=== PATIENT | female | born 1990 | race Two or more races ===

== ENCOUNTER 2020-08-27 09:55 | Emergency (ER) | payer OTHER ==
[~2020-08-27] VITALS: Ht 172.7 cm; Wt 65.8 kg
[2020-08-27] MEDS ORDERED: KETO10TA2 PO (15:56)
[2020-08-27] MEDS ORDERED: PEPCID AC20 MG PO (15:56)
== END 2020-08-27 16:33 | disposition home or self-care (01) ==
LOC: ER 09:55
DX: N93.8 Other specified abnormal uterine and vaginal bleeding (principal); D25.9 Leiomyoma of uterus, unspecified

== ENCOUNTER 2020-08-29 16:00 | Emergency (ER) | payer OTHER ==
[~2020-08-29] VITALS: Ht 172.7 cm; Wt 65.8 kg
[~2020-08-29 16:00] MED LIST: KETO10TA2 PO; PEPCID AC20 MG PO
== END 2020-08-29 20:15 | disposition home or self-care (01) ==
LOC: ER 16:00
DX: R10.31 Right lower quadrant pain (principal); M79.18 Myalgia, other site

== ENCOUNTER 2021-05-17 11:01 | Emergency (ER) | payer OTHER ==
[~2021-05-17] VITALS: Ht 172.7 cm; Wt 72.6 kg
[2021-05-17] MEDS ORDERED: ADULT LOW DOSE81 M1 (11:13)
== END 2021-05-17 15:14 | disposition left against medical advice (07) ==
LOC: ER 11:01
DX: O26.892 Other specified pregnancy related conditions, second trimester (principal)

== ENCOUNTER 2021-06-11 11:31 | Inpatient (IN) | payer OTHER ==
[~2021-06-11] VITALS: Ht 172.7 cm; Wt 83.0 kg
[~2021-06-11 11:31] MED LIST changes: +ADULT LOW DOSE81 M1
== END 2021-06-13 10:11 | disposition home or self-care (01) | DRG 833 ==
LOC: NST 11:31 → LDR 12:59 → OB/GYN 06-12 18:29
PROVIDERS: ADMIT Obstetrics & Gynecology; ATTEND Obstetrics & Gynecology
PROC: 4A1HXFZ Monitoring of Products of Conception, Cardiac Rhythm, External Approach (ICD-10-PCS; principal; 2021-06-11)
DX: O13.2 Gestational [pregnancy-induced] hypertension without significant proteinuria, second trimester (principal); Z3A.23 23 weeks gestation of pregnancy
CPT/HCPCS: 240

== ENCOUNTER 2021-06-28 20:12 | Outpatient (CLI) | payer OTHER ==
[2021-06-28] MEDS ORDERED: PROGESTERONE100 M1 VAG (21:21)
[2021-06-28] MEDS ORDERED: LABETALOL HCL200 MG PO (21:22)
[2021-06-28] MEDS ORDERED: PRENATAL + DHA1 EAC1 (21:23)
== END 2021-06-29 11:09 | disposition home or self-care (01) ==
LOC: OBS/DEL 20:12
PROVIDERS: ATTEND Obstetrics & Gynecology
DX: O16.2 Unspecified maternal hypertension, second trimester (principal); Z3A.25 25 weeks gestation of pregnancy

== ENCOUNTER 2021-07-14 12:10 | Inpatient (IN) | payer OTHER ==
[~2021-07-14] VITALS: Ht 172.7 cm; Wt 85.7 kg
[~2021-07-14 12:10] MED LIST changes: +LABETALOL HCL200 MG PO; +PRENATAL + DHA1 EAC1; +PROGESTERONE100 M1 VAG
== END 2021-07-17 10:23 | disposition home or self-care (01) | DRG 832 ==
LOC: LDR 12:10 → OB/GYN 07-16 08:48
PROVIDERS: ADMIT Obstetrics & Gynecology; ATTEND Obstetrics & Gynecology
PROC: 4A1HXFZ Monitoring of Products of Conception, Cardiac Rhythm, External Approach (ICD-10-PCS; principal; 2021-07-14)
PROC: BY4FZZZ Ultrasonography of Third Trimester, Single Fetus (ICD-10-PCS; 2021-07-14)
DX: O26.873 Cervical shortening, third trimester (principal); O47.03 False labor before 37 completed weeks of gestation, third trimester; O36.8330 Maternal care for abnormalities of the fetal heart rate or rhythm, third trimester, not applicable or unspecified; O13.3 Gestational [pregnancy-induced] hypertension without significant proteinuria, third trimester; Z3A.28 28 weeks gestation of pregnancy

== ENCOUNTER 2021-07-26 10:58 | Outpatient (CLI) | payer OTHER | END 2021-07-26 12:08 | disposition home or self-care (01) | LOC: NST 10:58 | PROVIDERS: ATTEND Obstetrics & Gynecology Maternal & Fetal Medicine | DX: Z34.83 Encounter for supervision of other normal pregnancy, third trimester (principal) ==

== ENCOUNTER 2021-08-03 09:21 | Outpatient (CLI) | payer OTHER | END 2021-08-03 10:07 | disposition home or self-care (01) | LOC: NST 09:21 | PROVIDERS: ATTEND Obstetrics & Gynecology Maternal & Fetal Medicine | DX: Z34.83 Encounter for supervision of other normal pregnancy, third trimester (principal) ==

== ENCOUNTER 2021-08-10 08:23 | Outpatient (CLI) | payer OTHER | END 2021-08-10 08:59 | disposition home or self-care (01) | LOC: NST 08:23 | PROVIDERS: ATTEND Obstetrics & Gynecology Maternal & Fetal Medicine | DX: Z34.83 Encounter for supervision of other normal pregnancy, third trimester (principal) ==

== ENCOUNTER 2021-08-20 08:08 | Outpatient (CLI) | payer OTHER | END 2021-08-20 08:45 | disposition home or self-care (01) | LOC: NST 08:08 | PROVIDERS: ATTEND Obstetrics & Gynecology | DX: Z34.83 Encounter for supervision of other normal pregnancy, third trimester (principal) ==